=== PATIENT | female | born 1960 | race Caucasian/White ===

== ENCOUNTER 2021-10-19 11:33 | Emergency (ER) | payer MEDICAID, MEDICARE ==
[~2021-10-19] VITALS: Ht 165.1 cm; Wt 70.3 kg
[2021-10-19] MEDS ORDERED: SODIUM CHLORIDE 0.9% 1,000 ML IVB ONE (12:00)
[2021-10-19 13:29] LABS: Basophils # (auto) 0.1 10 ^3/uL (0-0.2); Basophils % (auto) 1.1 % (0.0-2.0); Eosinophils # (auto) 0 10 ^3/uL (0-0.8); Eosinophils % (auto) 0.5 % (0.0-7.0); Hemoglobin 14.7 g/dL (12.2-16.2); Lymphocytes # (auto) 1.8 10 ^3/uL (0.4-5.4); Lymphocytes % (auto) 19.9 % (10.0-50.0); Mean Corpuscular Hemoglobin 31.7 pg (28.0-32.0); Mean Corpuscular Hgb Conc. 34.9 g/dL (32.0-36.0); Mean Corpuscular Volume 90.6 fL (80.0-100.0); Monocytes # (auto) 1.1 10 ^3/uL (0-1.3); Monocytes % (auto) 12.5 % (0.0-12.0); Neutrophils # (auto) 5.9 10 ^3/uL (1.6-8.6); Nucleated Red Blood Cells % 0.2 %; Red Blood Cells 4.63 10^6/uL (4.0-5.20); Red Cell Distribution Width 13.8 % (11.8-14.3)
[2021-10-19 13:36] LABS: Urine Bacteria FEW /hpf (None Seen); Urine Blood Negative /uL (Negative); Urine Mucus FEW (None Seen); Urine Specific Gravity 1.024 (1.001-1.035); Urine WBC 1 /hpf (0 - 5)
[2021-10-19 13:46] LABS: Albumin 3.7 g/dL (3.4-5.0); BUN/Creatinine Ratio 39.7; Calcium 8.5 mg/dL (8.5-10.1); Potassium 4.1 mmol/L (3.5-5.1)
[2021-10-19 13:49] LABS: Bilirubin, Total 0.6 mg/dL (0.2-1.0); Total Protein 8.1 g/dL (6.4-8.2)
[2021-10-19] MEDS ORDERED: ONDA-144 PO (14:12)
[2021-10-19] MEDS ORDERED: DIPH2.5T73 PO (14:12)
[2021-10-19 15:19] VITALS: BP 130/75
== END 2021-10-19 15:30 | disposition home or self-care (01) ==
LOC: ER 11:33
DX: K52.9 Noninfective gastroenteritis and colitis, unspecified (principal); E11.9 Type 2 diabetes mellitus without complications; I10 Essential (primary) hypertension; E03.9 Hypothyroidism, unspecified; F17.210 Nicotine dependence, cigarettes, uncomplicated; Z90.710 Acquired absence of both cervix and uterus; Z79.899 Other long term (current) drug therapy
CPT/HCPCS: 36415; 74176; 80053; 81001; 82150; 83690; 85025; 93005; 96360; 99285; J7030

== ENCOUNTER 2022-03-06 08:15 | Emergency (ER) | payer MEDICAID ==
[~2022-03-06] VITALS: Ht 165.1 cm; Wt 72.9 kg
[~2022-03-06 08:15] MED LIST: DIPH2.5T73 PO; ONDA-144 PO
[2022-03-06] MEDS ORDERED: SODIUM CHLORIDE 0.9% 1,000 ML IVB ONE (09:00)
[2022-03-06 09:20] LABS: Urine Bacteria FEW /hpf (None Seen); Urine Blood Negative /uL (Negative); Urine Specific Gravity 1.011 (1.001-1.035); Urine WBC 1 /hpf (0 - 5)
[2022-03-06 09:23] LABS: Basophils # (auto) 0 10 ^3/uL (0-0.2); Basophils % (auto) 0.1 % (0.0-2.0); Eosinophils # (auto) 0 10 ^3/uL (0-0.8); Eosinophils % (auto) 0.7 % (0.0-7.0); Hematocrit 40.2 % (36.0-46.0); Hemoglobin 13.2 g/dL (12.2-16.2); Lymphocytes # (auto) 1.7 10 ^3/uL (0.4-5.4); Mean Corpuscular Hemoglobin 30.1 pg (28.0-32.0); Mean Corpuscular Hgb Conc. 32.7 g/dL (32.0-36.0); Mean Corpuscular Volume 91.8 fL (80.0-100.0); Monocytes # (auto) 0.8 10 ^3/uL (0-1.3); Monocytes % (auto) 15.5 % (0.0-12.0); Neutrophils # (auto) 2.5 10 ^3/uL (1.6-8.6); Neutrophils % (auto) 49.7 % (37.0-80.0); Nucleated Red Blood Cells % 0.1 %; Red Blood Cells 4.38 10^6/uL (4.0-5.20); Red Cell Distribution Width 14.1 % (11.8-14.3)
[2022-03-06 09:35] LABS: Albumin 3.4 g/dL (3.4-5.0); Calcium 9.4 mg/dL (8.5-10.1); Potassium 4.3 mmol/L (3.5-5.1)
[2022-03-06 09:39] LABS: BUN/Creatinine Ratio 21.8; Bilirubin, Total 0.5 mg/dL (0.2-1.0); Total Protein 8.1 g/dL (6.4-8.2)
[2022-03-06 10:04] LABS: Magnesium 2.1 mg/dL (1.6-2.6)
[2022-03-06 15:54] VITALS: BP 146/86
== END 2022-03-06 18:41 | disposition home or self-care (01) ==
LOC: ER 08:15
DX: E11.65 Type 2 diabetes mellitus with hyperglycemia (principal); M06.9 Rheumatoid arthritis, unspecified; E03.9 Hypothyroidism, unspecified; I10 Essential (primary) hypertension; F17.210 Nicotine dependence, cigarettes, uncomplicated; Z90.710 Acquired absence of both cervix and uterus
CPT/HCPCS: 36415; 71046; 80053; 81001; 82962; 83690; 83735; 84443; 84484; 85025; 93005; 96360; 99285; J7030

== ENCOUNTER 2025-01-21 12:50 | Inpatient (IN) | payer MEDICAID ==
[~2025-01-21] VITALS: Ht 165.1 cm; Wt 72.7 kg
[~2025-01-21 12:50] MED LIST changes: +ALBU0.084 NEB; +FOLI-119 PO; +GABA-339 PO; +GEMF-66 PO; +IPR002IS NEB; +LEVO175T4 PO; +LEVO500T31 PO; +LISI-275 PO; +OMEP-335 PO; +PRED20TA2 PO
--- NOTE | 2025-01-21 13:03 | ECG ---
[facility] Test Date: 2025-01-21 Test Time: 13:01:41 Pat Name: YANCY BURGESS Department: ER Room: Gender: F Senior Outside Sales Representative: GENA : 1960 Requested By: DEYSI GLAEAS Order Number: [id number] Reading MD: Robert Montes De Oca Measurements Intervals [place] Rate: 87 P: 73 [place]: 144 QRS: 14 QRSD: 102 T: 48 QT: 373 QTc: 449 Interpretive Statements Sinus rhythm Abnormal R-wave progression, early transition Electronically Signed On 01-21-2025 21:19:55 PDT by Robert Montes De Oca Please click the below link to view image of tracing.
--- NOTE | 2025-01-21 13:04 | ED.PDOC ---
HPI Comments HPI: 64-year-old female presents to the ED with a chief complaint of dizziness onset today (01/21/25). Patient states she was at home, began experiencing dizziness, near syncopal episode, was assisted to the ground by her son. She is currently experiencing dizziness, generalized weakness. Patient states she took all her medication this morning. Upon ED arrival, blood glucose was checked, it was 144. She is a poor historian, able to answer questions. No other symptoms or modifying factors present at this time. Initial Vitals BP: 83/35 HR: 76 RR: 18 O2 Sat: 99% Temp: 98 F Past Medical history: DM, HTN, thyroid disease, arthritis Past Surgical history: hysterectomy Medications: lisinopril, levothyroxine, Glipizide Social History: cigarettes, marijuana Allergies: NKDA HPI: Poor Historian. No fall or trauma or injury REVIEW OF SYSTEMS: CONSTITUTIONAL: Denies acute: fever, diaphoresis, chills, HEAD: Denies acute: headache, photophobia Eyes: Denies acute: Double vision, vision loss, eye pain, eye discharge. EARS: Denies acute: tinnitus, hearing loss, ear discharge, ear pain, THROAT: Denies acute: sore throat, swelling, difficulty swallowing , pain with swallowing, change in voice. NECK: Denies acute: neck pain, neck swelling, stiff neck. HEART: Denies acute : chest pain, palpitations, LUNGS: Denies acute: SOB, wheezing, cough, hemoptysis ABDOMEN: Denies acute: abdominal pain, Nausea, Vomiting, diarrhea, melena , hematemesis, hematochezia SKIN: Denies acute: rash, redness, lesions, itchiness. EXTREMITIES: Denies acute: calf pain, numbness, tingling, weakness, denies pain in extremity. Denies acute: Low back pain. Neuro: Denies acute: focal neurological deficit, motor or sensory focal neurological deficit, tremors, seizure like activity, confusion, loss of bowel or bladder function, cauda equina like symptoms. : Denies acute: dysuria, hematuria, flank pain, increase in urinary frequency. PSYCH: Denies acute: hallucination, suicidal ideation, homicidal ideation. FEMALE: Denies acute: abnormal vaginal bleeding, foul odor, unusual discharge. PHYSICAL EXAM: General: ---rojp-sw-[id number]----acute distress, awake and alert. Head: normocephalic, atraumatic. Neck: supple, trachea is midline, no swelling. Throat: Normal phonation. Eyes:, no erythema, no purulent discharge, no proptosis, no icterus. Heart: regular rate, regular rhythm, no significant murmur appreciated. Lungs: no apparent respiratory distress, Able to speak in full sentences. No wheezing, no rhonchi, no crackles. No stridors Clear to auscultation bilaterally. Abdomen: non tender to palpation, non distended, soft, no guarding, no rebound, + bowel sounds. Neuro: Awake, Alert, oriented to name, self, situation, follows commands GCS=15. Speech is normal. Skin: no petechia, no purpura, no cyanosis, non-pale, not jaundice. Lower extremities: --no - Pitting edema no deformity, no focal swelling, no calf TTP. Patient wearing a hernandez boot on her left lower extremity. Makes eye contact. moves all four extremities. Face: no apparent facial droop. No nuchal rigidity, Kernig's sign, Brudzinski's sign, no meningeal signs. ED COURSE: DISCLAIMER: This medical document was created using an electronic medical record system with voice recognition software and computerized dictation system. Although this document has been carefully reviewed, there might still be some phonetic and typographical errors. Occasional wrong-word or "sound-alike" substitutions may have occurred due to the inherent limitations of voice recognition software. These areas are purely typographical due to imperfections of the software programs and do not reflect any compromise in the patient's medical care. Please read the chart carefully and recognize, using context, where these substitutions have occurred. Time Seen by MD: 12:55 Primary Care Provider: RICA Reviewed Notes: Medications, Allergies Allergies: Coded Allergies: NO KNOWN ALLERGIES (Unverified , 10/19/21) Home Meds Active Scripts Ondansetron (Zofran) 4 Mg Tab, 1 TAB PO Q6HR, #20 TAB Prov:ALAN FISCHER MD 10/19/21 Diphenoxylate W/ Atropine (Lomotil) 2.5 Mg Tab, 1 TAB PO QID, #20 TAB Prov:ALAN FISCHER MD 10/19/21 Ipratropium [place] (Ipratropium [place]) 0.02 % Janet, 0.5 % NEB Q6HR, #120 ML Prov:NAHEED ESPARZA MD 08/20/19 Albuterol Sulfate (Albuterol Sulfate) 0.083 % Neb, 0.083 % NEB Q6HR, #120 Prov:NAHEED ESPARZA MD 08/20/19 Prednisone (Prednisone) 20 Mg Tab, 1 DOSE PO UD, #21 MG Take 80mg dailyx 2 days then 60mg dailyx 2 days then 40mg dailyx 2 days then 20mg dailyx 2 days then 10mg dailyx 2 days Prov:NAHEED ESPARZA MD 08/20/19 Levofloxacin (Levaquin) 500 Mg Tab, 500 MG PO DAILY, #7 TAB Prov:NAHEED ESPARZA MD 08/20/19 Reported Medications Folic Acid (Folic Acid) 1 Mg Tab, 1 MG PO DAILY for 30 Days, MG 08/20/19 Gemfibrozil (Gemfibrozil) 600 Mg Tab, 300 MG PO BID for 30 Days 08/20/19 Lisinopril (Lisinopril) 5 Mg Tab, 5 MG PO DAILY for 30 Days, MG 08/20/19 Omeprazole (Omeprazole) 20 Mg Tab, 20 MG PO, TAB 04/27/19 Gabapentin (Gabapentin) 600 Mg Tab, 600 MG PO HS for 30 Days, MG 11/08/17 Levothyroxine Sodium (Levothyroxine Sodium) 175 Mcg Tab, 175 MCG PO, TAB 11/08/17 Information Source: Patient, Relative (Child) Mode of Arrival: Wheelchair Severity: Moderate Timing: Hours Duration: Since onset Prehospital treatment: None Onset: At Rest Cardiac Risk Factors: Smoker, HTN, Diabetes PE Risk Factors: None History of: None Modifying Factors: Nothing Past Medical History PAST MEDICAL HISTORY: Arthritis, DM, HTN, Thyroid Surgical History: Hysterectomy C S S REPRESENTATIVE History: No Pertinent C S S REPRESENTATIVE History Family History Family History: Family hx of Cancer Social History Smoker: Cigarettes Alcohol: Denies ETOH Use Drugs: Marijuana Lives In: Home Was a procedure done? Was a procedure done?: No CP Differential Dx Differential Diagnosis: N/A Differential Diagnosis: Other (Includes but not limited to thyroid disease, encephalopathy, electrolyte abnormality, sepsis, infection, intracranial pathology, drug adverse effects, arrhythmia, kidney insufficiency, ACS, CVA, malignancy, anemia) X-Ray, Labs, Meds, VS Vital Signs Date Time Temp Pulse Resp B/P (MAP) Pulse Ox O2 Delivery O2 Flow Rate FiO2 01/21/25 20:00 54 01/21/25 18:00 97.8 80 20 123/78 (93) 98 97.8 01/21/25 17:30 79 01/21/25 16:00 97.8 82 14 129/67 (87) 96 97.8 01/21/25 13:17 85 01/21/25 13:10 97.8 86 18 134/76 (95) 96 97.8 01/21/25 13:10 86 18 96 Room Air* 0 21 01/21/25 13:01 87 01/21/25 12:54 98.0 76 18 83/35 (51) 99 98.0 Lab Test 01/21/25 16:25 01/21/25 14:25 01/21/25 14:05 01/21/25 13:27 Range/Units Troponin I High Sensitivity < 3 L < 3 L < 3 L </=34 ng/L Urine Color Colorless Yellow Urine Clarity Clear Clear Urine pH 7.0 5.0-9.0 Urine Specific [place] 1.006 1.001-1.035 Urine Protein Negative Negative Urine Ketones Negative Negative Urine Blood Negative Negative /uL Urine Nitrite Negative Negative Urine Bilirubin Negative Negative Urine Urobilinogen Normal Negative mg/dL Urine Leukocyte Esterase Negative Negative /uL Urine RBC <1 0 - 4 /hpf Urine Microscopic WBC 2 0-5 /HPF Urine Squamous Epithelial Cells Few <5 /hpf Urine Bacteria Few H None Seen /hpf Urine Mucus Few None Seen Urine Glucose Normal Normal mg/dL White Blood Count 9.7 4.4-10.8 10^3/uL Red Blood Count 4.15 4.0-5.20 10^6/uL Hemoglobin 13.3 12.2-16.2 g/dL Hematocrit 37.7 36.0-46.0 % Mean Corpuscular Volume 90.8 80.0-100.0 fL Mean Corpuscular Hemoglobin 32.1 H 28.0-32.0 pg Mean Corpuscular Hemoglobin Concent 35.3 32.0-36.0 g/dL Red Cell Distribution Width 14.4 H 11.8-14.3 % Platelet Count 113 L 140-450 10^3/uL Mean Platelet Volume 8.4 6.9-10.8 fL Neutrophils (%) (Auto) 40.5 37.0-80.0 % Lymphocytes (%) (Auto) 46.8 10.0-50.0 % Monocytes (%) (Auto) 9.9 0.0-12.0 % Eosinophils (%) (Auto) 2.3 0.0-7.0 % Basophils (%) (Auto) 0.5 0.0-2.0 % Neutrophils # (Auto) 3.9 1.6-8.6 10 ^3/uL Lymphocytes # (Auto) 4.5 0.4-5.4 10 ^3/uL Monocytes # (Auto) 1.0 0-1.3 10 ^3/uL Eosinophils # (Auto) 0.2 0-0.8 10 ^3/uL Basophils # (Auto) 0 0-0.2 10 ^3/uL Nucleated Red Blood Cells 0.0 % Sodium Level 140 136-145 mmol/L Potassium Level 3.1 L 3.5-5.1 mmol/L Chloride Level 110 H 98-107 mmol/L Carbon Dioxide Level 21 20-31 mmol/L Anion Gap 9 5-15 Blood Urea Nitrogen 16 9-23 mg/dL Creatinine 0.89 0.550-1.02 mg/dL Glomerular Filtration Rate Calc 72 >90 mL/min BUN/Creatinine Ratio 18.0 10.0-20.0 Serum Glucose 138 H 74-106 mg/dL Lactic Acid Level 1.8 0.4-2.0 mmol/L Calcium Level 8.8 8.7-10.4 mg/dL Magnesium Level 1.9 1.6-2.6 mg/dL Total Bilirubin 1.0 0.2-1.0 mg/dL Aspartate Amino Transferase (AST) 32 <34 U/L Alanine Aminotransferase (ALT) 29 7-40 U/L Alkaline Phosphatase 143 H 46-116 U/L Total Protein 6.8 5.7-8.2 g/dL Albumin 4.0 3.2-4.8 g/dL Thyroid Stimulating Hormone (TSH) 17.08 H 0.55-4.78 uIU/mL Test 01/21/25 12:55 Range/Units POC Glucose 144 H 70-106 mg/dl Current Medications Medications (Trade) Dose Ordered Sig/Sang Route Start Time Stop Time Status Last Admin Sodium Chloride 1,000 ml @ 1,000 mls/hr Q1H ONCE IV 01/21/25 13:00 01/21/25 13:59 DC 01/21/25 13:31 Sodium Chloride 1,000 ml @ 1,000 mls/hr Q1H ONCE IV 01/21/25 13:00 01/21/25 13:59 DC 01/21/25 13:31 Potassium Chloride (Klor-Con Tablet) 40 meq ONCE ONCE PO 01/21/25 14:45 01/21/25 15:36 DC 01/21/25 15:41 Gabapentin (Neurontin Capsule) 300 mg ONCE ONCE PO 01/21/25 20:30 01/21/25 20:31 DC 01/21/25 20:26 [place] [id number] Ph: [phone] DIAGNOSTIC IMAGING Diagnostic Imaging Report : [id number] Signed PATIENT: CODEY BURGESST: [id number] UNIT: [id number] : 1960 LOC: ER ROOM / BED: / AGE / SEX: 64 / F ADM STATUS: REG ER SERVICE 1256 ORDERING PHYSICIAN: DEYSI GALEAS DO PROCEDURE(s): CXRP - CHEST PORTABLE REASON: near syncope, hypotensive ORDER NUMBER(s): [id number], ACCESSION NUMBER(s): [id number] CHEST RADIOGRAPH Indication: near syncope, hypotensive Technique: Single frontal view of the chest was obtained COMPARISON: None FINDINGS: Lines and Tubes: None Lungs: Clear Pleura: No effusion. No pneumothorax. Cardiomediastinal contours: Unremarkable Bones: Unremarkable IMPRESSION: No acute disease. ATED BY: BHUPENDRA HERNANDEZ MD DICTATED DATE/TIME: 01/21/25 1357 SIGNED BY: BHUPENDRA HERNANDEZ MD SIGNED DATE/TIME: 01/21/25 135 CC: Time of 1ST Reevaluation: 13:25 Reevaluation 1ST: Unchanged Time of 2ND Reevaluation: 21:18 Reevaluation 2ND: Resolved Patient Education/Counseling: Diagnosis, Treatment Family Education/Counseling: Diagnosis, Treatment Comments Patient presented with the above HPI.---near-syncope/hypotension---workup was initiated. patient was found with the above mentioned diagnosis. the following medications were ordered: please refer to order lists of meds and tests obtained by myself Dr. Galeas. Patient ED course and VS have been stabilized. Patient has been reassessed in the ED and remained in a stable condition. Pertinent incidental findings were discussed with the patient and/or family. Patient/family voices understanding and is agreeable with plan. Patient has been observed in the ED adequate length of time to insure improvement/stability. Escalation of care considered: Consideration of escalation to observation or admission Patient was given at least 2 L normal saline bolus. She improved significantly. Patient was ADMITTED to the medicine team for further evaluation and treatment of their presentation. All the reports of any imaging studies that were ordered by myself were reviewed by myself. Departure 1 Departure Time of Disposition: 13:32 Impression: Primary Impression: Syncope Additional Impressions: Hypotension Thyroid disease Hypokalemia Disposition: ADMITTED INPATIENT Admit to: Tele Condition: Guarded Discharged With: Self Critical Care Note Critical Care Time?: No Heart Score Heart Score: Heart Score Response (Comments) Value History Slightly Suspicious 0 EKG Normal 0 Age 45-64 1 Risk Factors 1 or 2 risk factors 1 Troponin Normal limit 0 Total 2 I personally scribed for DEYSI GALEAS DO ([email or web address]) on 01/21/25 at 13:03. Electronically submitted by Taylor Fraser ([email or web address]). I personally scribed for DEYSI GALEAS DO ([email or web address]) on 01/21/25 at 13:18. Electronically submitted by Taylor Fraser ([email or web address]). I personally scribed for DEYSI GALEAS DO ([email or web address]) on 01/21/25 at 14:03. Electronically submitted by Taylor Fraser ([email or web address]). DEYSI GALEAS DO Jan 21, 2025 13:03
[2025-01-21 13:10] VITALS: PULSE 86; RESP 18; O2SAT 96
[2025-01-21] MEDS: SODIUM CHLORIDE 0.9% 1,000 ML IV ONE ×2 (13:31)
[2025-01-21 13:41] LABS: Basophils # (auto) 0 10 ^3/uL (0-0.2); Basophils % (auto) 0.5 % (0.0-2.0); Eosinophils # (auto) 0.2 10 ^3/uL (0-0.8); Eosinophils % (auto) 2.3 % (0.0-7.0); Hematocrit 37.7 % (36.0-46.0); Hemoglobin 13.3 g/dL (12.2-16.2); Lymphocytes # (auto) 4.5 10 ^3/uL (0.4-5.4); Lymphocytes % (auto) 46.8 % (10.0-50.0); Mean Corpuscular Hemoglobin 32.1 pg (28.0-32.0); Mean Corpuscular Hgb Conc. 35.3 g/dL (32.0-36.0); Mean Corpuscular Volume 90.8 fL (80.0-100.0); Monocytes % (auto) 9.9 % (0.0-12.0); Neutrophils # (auto) 3.9 10 ^3/uL (1.6-8.6); Neutrophils % (auto) 40.5 % (37.0-80.0); Platelet Count (auto) 113 10^3/uL (140-450); Red Blood Cells 4.15 10^6/uL (4.0-5.20); Red Cell Distribution Width 14.4 % (11.8-14.3); White Blood Cell 9.7 10^3/uL (4.4-10.8)
[2025-01-21 13:59] LABS: Alanine Aminotransferase 29 U/L (7-40); Anion Gap 9 (5-15); Aspartate Aminotransferase 32 U/L (<34); Blood Urea Nitrogen 16 mg/dL (9-23); Calcium 8.8 mg/dL (8.7-10.4); Carbon Dioxide 21 mmol/L (20-31); Magnesium 1.9 mg/dL (1.6-2.6); Sodium 140 mmol/L (136-145); Total Protein 6.8 g/dL (5.7-8.2)
--- NOTE | 2025-01-21 14:00 | DVH ---
CHEST RADIOGRAPH Indication: near syncope, hypotensive Technique: Single frontal view of the chest was obtained COMPARISON: None FINDINGS: Lines and Tubes: None Lungs: Clear Pleura: No effusion. No pneumothorax. Cardiomediastinal contours: Unremarkable Bones: Unremarkable IMPRESSION: No acute disease.
[2025-01-21 14:01] LABS: Alkaline Phosphatase 143 U/L (46-116); Chloride 110 mmol/L (98-107); Glucose 138 mg/dL (74-106); Potassium 3.1 mmol/L (3.5-5.1)
[2025-01-21 14:35] LABS: Urine Bacteria FEW /hpf (None Seen); Urine Blood Negative /uL (Negative); Urine Clarity Clear (Clear); Urine Color Colorless (Yellow); Urine Mucus FEW (None Seen); Urine Protein, UAD Negative (Negative); Urine Specific Gravity 1.006 (1.001-1.035); Urine Squamous Epithelial Cell FEW /hpf (<5); Urine Urobilinogen Normal (Negative); Urine WBC 2 /HPF (0-5)
[2025-01-21] MEDS: POTASSIUM CHL 20 Meq TABLET PO ONE (15:41)
[2025-01-21] MEDS: GABAPENTIN 300 MG CAP PO ONE (20:26)
--- NOTE | 2025-01-21 21:39 | DVHHPRES ---
History of Present Illness Resident Creating Document: JIM MOSES RESIDENT Reason for Visit: Syncope History of Present Illness 64-year-old female past medical history of COPD, hypertension, diabetes mellitus type 2 hypothyroidism, peripheral neuropathy, GERD, arthritis presented with complaints of syncope. Patient started feeling cold and clammy around 1230 hours with lower back pain followed by dizziness after which she sat on the ground and son noticed and "caught the patient". Further son patient passed out for 20-30 seconds after which she started making some mumbling sounds and patient brought to the ER. On presenting to the ER patient had low blood pressure after which IV fluids were given and patient mentioned improvement in her symptoms. Mentioned that she has been having neck pain for last seven days. Mentioned that she recently had a telephone visit with her primary care physician one month ago but was not taking her prescription medicine for last 5- 6 months before that She denied any chest pain, shortness of breath, cough, nausea, vomiting. Past medical history COPD, hypertension, diabetes mellitus type 2 hypothyroidism, peripheral neuropathy, GERD, rheumatoid arthritis Surgical history ORIF for leg fracture 20 years ago s/p hysterectomy Medication history Methotrexate Gemfibrozil Gabapentin Levothyroxine Lisinopril Omeprazole Prednisone Abatacept Social History Patient smokes cigarettes half pack to one pack for last 53 years occasional marijuana Allergic history No Known Allergies Review of Systems Review of Systems As mentioned in the HPI Allergies: Coded Allergies: NO KNOWN ALLERGIES (Unverified , 10/19/21) Exam Vital Signs Vital Signs Date Time Temp Pulse Resp B/P (MAP) Pulse Ox O2 Delivery O2 Flow Rate FiO2 01/21/25 20:00 54 01/21/25 18:00 97.8 20 123/78 (93) 98 97.8 01/21/25 13:10 Room Air* 0 21 Exam Examination General Appearance: Alert, Oriented X3, Cooperative, No acute distress HEENT: EOMI Respiratory: Clear to auscultation, Normal air movement Cardiovascular: Regular rate, Normal S1, Normal S2 Abdominal: Normal bowel sounds Extremities: No cyanosis, No edema, Normal pulses, No tenderness/swelling Skin: No rashes, No breakdown Neuro: Normal gait, Normal speech, Strength at 5/5 X4 ext, Normal tone, Sensation intact, Cranial nerves 3-12 NL, Reflexes 2+ Psych/Mental Status: Mental status NL, Mood NL POCUS done at bedside -Collapsed IVC Labs/Xrays Labs Test 01/21/25 16:25 01/21/25 14:05 01/21/25 13:27 01/21/25 12:55 Range/Units Troponin I High Sensitivity < 3 L </=34 ng/L Urine Color Colorless Yellow Urine Clarity Clear Clear Urine pH 7.0 5.0-9.0 Urine Specific [place] 1.006 1.001-1.035 Urine Protein Negative Negative Urine Ketones Negative Negative Urine Blood Negative Negative /uL Urine Nitrite Negative Negative Urine Bilirubin Negative Negative Urine Urobilinogen Normal Negative mg/dL Urine Leukocyte Esterase Negative Negative /uL Urine RBC <1 0 - 4 /hpf Urine Microscopic WBC 2 0-5 /HPF Urine Squamous Epithelial Cells Few <5 /hpf Urine Bacteria Few H None Seen /hpf Urine Mucus Few None Seen Urine Glucose Normal Normal mg/dL White Blood Count 9.7 4.4-10.8 10^3/uL Red Blood Count 4.15 4.0-5.20 10^6/uL Hemoglobin 13.3 12.2-16.2 g/dL Hematocrit 37.7 36.0-46.0 % Mean Corpuscular Volume 90.8 80.0-100.0 fL Mean Corpuscular Hemoglobin 32.1 H 28.0-32.0 pg Mean Corpuscular Hemoglobin Concent 35.3 32.0-36.0 g/dL Red Cell Distribution Width 14.4 H 11.8-14.3 % Platelet Count 113 L 140-450 10^3/uL Mean Platelet Volume 8.4 6.9-10.8 fL Neutrophils (%) (Auto) 40.5 37.0-80.0 % Lymphocytes (%) (Auto) 46.8 10.0-50.0 % Monocytes (%) (Auto) 9.9 0.0-12.0 % Eosinophils (%) (Auto) 2.3 0.0-7.0 % Basophils (%) (Auto) 0.5 0.0-2.0 % Neutrophils # (Auto) 3.9 1.6-8.6 10 ^3/uL Lymphocytes # (Auto) 4.5 0.4-5.4 10 ^3/uL Monocytes # (Auto) 1.0 0-1.3 10 ^3/uL Eosinophils # (Auto) 0.2 0-0.8 10 ^3/uL Basophils # (Auto) 0 0-0.2 10 ^3/uL Nucleated Red Blood Cells 0.0 % Sodium Level 140 136-145 mmol/L Potassium Level 3.1 L 3.5-5.1 mmol/L Chloride Level 110 H 98-107 mmol/L Carbon Dioxide Level 21 20-31 mmol/L Anion Gap 9 5-15 Blood Urea Nitrogen 16 9-23 mg/dL Creatinine 0.89 0.550-1.02 mg/dL Glomerular Filtration Rate Calc 72 >90 mL/min BUN/Creatinine Ratio 18.0 10.0-20.0 Serum Glucose 138 H 74-106 mg/dL Lactic Acid Level 1.8 0.4-2.0 mmol/L Calcium Level 8.8 8.7-10.4 mg/dL Magnesium Level 1.9 1.6-2.6 mg/dL Total Bilirubin 1.0 0.2-1.0 mg/dL Aspartate Amino Transferase (AST) 32 <34 U/L Alanine Aminotransferase (ALT) 29 7-40 U/L Alkaline Phosphatase 143 H 46-116 U/L Total Protein 6.8 5.7-8.2 g/dL Albumin 4.0 3.2-4.8 g/dL Thyroid Stimulating Hormone (TSH) 17.08 H 0.55-4.78 uIU/mL POC Glucose 144 H 70-106 mg/dl Assessment/Plan Assessment/Plan Assessment/plan #syncope likely due to hypotension -Orthostasis vitals -EKG monitoring -NCCT head -echo #Hypotension -currently resolved -IV fluids #hypokalemia corrected #COPD -stable #DM2 -Mild sliding scale insulin -Monitor blood glucose #Hypothyroidism -TSH Free T3/T4, awaiting #GERD resume home meds #Rheumatoid arthritis resume home Meds #Thrombocytopenia monitor #Tobacco use disorder Nicotine patch counselling for cessation Case discussion with Dr Mar Plan discussed with: Patient, Other My Orders Orders - JIM MOSES RESIDENT Procedure Category Date Status Time Admit ADMIT 01/21/25 Transmitted 21:21 Oxygen By Nasal RT 01/21/25 Transmitted Cannula 21:21 Stat Ekg For Chest YADY 01/21/25 In Process Pain 21:21 Notify Of Changes YADY 01/21/25 In Process From Base 21:21 Reel Tender For YADY 01/21/25 In Process 24 Hours 21:21 Emergency Dysrhythmia YADY 01/21/25 In Process Protocol 21:21 Rhythm Strips Once [facility] 01/21/25 In Process Every Shift 21:21 Date of Service: Jan 21, 2025 Billing Provider: AMARILYS MAR MD Common Visit Codes: 34900-[id number] INP/OBS CARE (HIGH) Secondary Visit Codes: [id number] CARE PLAN 30 MINUTES JIM MOSES RESIDENT Jan 21, 2025 21:39
[2025-01-21] MEDS ORDERED: DEXTROSE (50%) 50ML SYRG IV PRN (21:45)
[2025-01-21 22:12] LABS: Free T3 1.73 pg/mL (2.3-4.2); Free T4 (Free Thyroxine) 0.96 ng/dL (0.89-1.76)
[2025-01-21] MEDS: NICOTINE 21MG/24 HR TOPICAL PATCH TD ONE (22:19)
--- NOTE | 2025-01-21 23:18 | DVH ---
COMPUTERIZED TOMOGRAPHY OF THE HEAD WITHOUT CONTRAST REASON FOR STUDY: syncope COMPARISON: None TECHNIQUE: Helical tomographic scans were obtained through the brain. 2-D coronal and sagittal refor matted images are provided. Automated exposure control was used. RADIATION DOSE: CTDI: 53 mGy DLP: 1054 mGy-cm FINDINGS: No suspicious intracranial hyperdensity to suggest acute blood. There is mild diffuse cere bral atrophy. There is no mass effect nor midline shift. There is no hydrocephalus. The suprasellar cistern is intact. The calvarium is intact. There is frothy material in the left maxillary sinus. Th e mastoid air cells are clear. IMPRESSION: No acute intracranial abnormality. Frothy material in the left maxillary sinus. Correlate clinically for acute sinusitis.
[2025-01-22] VITALS (9 sets, daily range): BP systolic 75–130; BP diastolic 37–80; PULSE 78–96; RESP 18–90; TEMP 97.6–98.4; O2SAT 95–97
[2025-01-22] MEDS: ACCU-CHEK COMFORT CURVE STRIP VI SCH (00:30)
[2025-01-22] MEDS: InsuLIN REG 1unit/0.01ml Soln (100units/ml) SC SCH (00:34)
[2025-01-22 06:48] LABS: Potassium 4.2 mmol/L (3.5-5.1); Sodium 138 mmol/L (136-145)
[2025-01-22 06:49] LABS: Anion Gap 8 (5-15); Calcium 9.4 mg/dL (8.7-10.4); Carbon Dioxide 20 mmol/L (20-31)
[2025-01-22 06:54] LABS: BUN/Creatinine Ratio 21.1 (10.0-20.0); Blood Urea Nitrogen 15 mg/dL (9-23)
[2025-01-22 06:55] LABS: Magnesium 1.9 mg/dL (1.6-2.6)
[2025-01-22 06:58] LABS: Chloride 110 mmol/L (98-107); Glucose 182 mg/dL (74-106)
[2025-01-22 07:10] LABS: Basophils # (auto) 0 10 ^3/uL (0-0.2); Basophils % (auto) 0.4 % (0.0-2.0); Eosinophils # (auto) 0.1 10 ^3/uL (0-0.8); Eosinophils % (auto) 1.8 % (0.0-7.0); Hematocrit 39.2 % (36.0-46.0); Hemoglobin 13.6 g/dL (12.2-16.2); Lymphocytes # (auto) 3.7 10 ^3/uL (0.4-5.4); Lymphocytes % (auto) 48.1 % (10.0-50.0); Mean Corpuscular Hemoglobin 31.8 pg (28.0-32.0); Mean Corpuscular Hgb Conc. 34.7 g/dL (32.0-36.0); Mean Corpuscular Volume 91.7 fL (80.0-100.0); Monocytes # (auto) 0.8 10 ^3/uL (0-1.3); Monocytes % (auto) 10.1 % (0.0-12.0); Neutrophils # (auto) 3.1 10 ^3/uL (1.6-8.6); Neutrophils % (auto) 39.6 % (37.0-80.0); Nucleated Red Blood Cells % 0.2 %; Platelet Count (auto) 98 10^3/uL (140-450); Red Blood Cells 4.28 10^6/uL (4.0-5.20); Red Cell Distribution Width 14.5 % (11.8-14.3); White Blood Cell 7.7 10^3/uL (4.4-10.8)
[2025-01-22] MEDS: SODIUM CHLORIDE 0.9% 250 ML IV ONE (07:30)
[2025-01-22] MEDS: ENOXAPARIN SOD 40 MG/0.4 ML SYRINGE SC SCH (09:11)
[2025-01-22] MEDS: NICOTINE 21MG/24 HR TOPICAL PATCH TD SCH (10:00)
[2025-01-22] MEDS ORDERED: ATOR20TA50 (17:22)
[2025-01-22] MEDS ORDERED: LEVO125T7 PO (17:22)
--- NOTE | 2025-01-22 17:30 | DVHPN2 ---
Subjective Patient denies any symptoms this time Reviewed: Care Plan, H&P, Labs Changes from previous H/P or p: No Changes General: Per HPI Objective Vitals Vital Signs Date Time Temp Pulse Resp B/P (MAP) Pulse Ox O2 Delivery O2 Flow Rate FiO2 01/22/25 17:19 97.6 85 18 115/55 (75) 96 97.6 01/22/25 13:20 Room Air* 0 21 Intake/Output Intake and Output 01/22/25 07:00 Intake Total 2000 ml Balance 2000 ml IV Total 2000 ml General Appearance: Alert, Oriented X3, Cooperative HEENT: PERRLA Lungs: Clear to auscultation, Normal air movement Cardiovascular: Normal S1, Normal S2 Abdomen: Normal bowel sounds, Soft, No tenderness Musculoskeletal: Normal sensory function, Normal motor function Skin: Dry, Intact Psych/Mental Status: Mental status NL, Mood NL Medications Current Medications Medications Dose Ordered Sig/Sang Route Start Time Stop Time Status Last Admin Dose Admin Diagnostic Test (Pha) 1 strip Q6HR 01/22/25 00:00 01/22/25 12:00 1 STRIP Insulin Human Regular Q6HR SC 01/22/25 00:00 01/22/25 12:00 3 UNITS Dextrose 50 ml UD PRN IV 01/21/25 21:45 Nicotine 1 patch DAILY TD 01/22/25 10:00 01/22/25 10:00 1 PATCH Enoxaparin Sodium 40 mg DAILY SC 01/22/25 10:00 Laboratory Results Laboratory Tests 01/22/25 06:01 Chemistry Test 01/22/25 06:01 Calcium Level 9.4 mg/dL (8.7-10.4) Magnesium Level 1.9 mg/dL (1.6-2.6) Urinalysis Test 01/21/25 14:05 Urine Color Colorless (Yellow) Urine Clarity Clear (Clear) Urine pH 7.0 (5.0-9.0) Urine Specific [place] 1.006 (1.001-1.035) Urine Protein Negative (Negative) Urine Ketones Negative (Negative) Urine Blood Negative /uL (Negative) Urine Nitrite Negative (Negative) Urine Bilirubin Negative (Negative) Urine Urobilinogen Normal mg/dL (Negative) Urine Leukocyte Esterase Negative /uL (Negative) Urine RBC <1 /hpf (0 - 4) Urine Microscopic WBC 2 /HPF (0-5) Urine Squamous Epithelial Cells Few /hpf (<5) Urine Bacteria Few /hpf (None Seen) H Urine Mucus Few (None Seen) Urine Glucose Normal mg/dL (Normal) Labs and/or images reviewed: Labs reviewed by me, Image(s) reviewed by me Assessment/Plan Assessment/Plan Impression: -syncope -hypovolemic hypotension -diabetes mellitus -hypothyroidism -dyslipidemia -nicotine dependence Plan: -orthostatic blood pressure -echocardiogram pending -CT scan of the head, carotid Doppler study unremarkable -regular insulin sliding scale -IV hydration -reassess for discharge in a.m. Total time spent with patient discussing and formulating plan of care: 35 minutes. This medical document was created using an electronic medical record system with [employer] dictation system. Although this document has been carefully reviewed, there may still be some phonetic and typographical errors. These areas are purely typographical due to imperfections of the software programs, and do not reflect any compromise in the patient's medical care. Plan discussed with: Patient, Other (RN) My Orders Orders - CORI FERNANDES NP Procedure Category Date Status Time Orthostatic Vital ORDERS 01/22/25 Transmitted Signs 17:20 Atorvastatin (Lipitor) PHA 01/22/25 Logged 22:00 (Nf) Levothyroxine PHA 01/23/25 Logged Sodium 10:00 Sodium Chloride 0.9% PHA 01/22/25 Logged 17:30 Date of Service: Jan 22, 2025 Billing Provider: CORI FERNANDES NP Common Visit Codes: 89050-[id number] INP/OBS CARE(HIGH) CORI FERNANDES NP Jan 22, 2025 17:30
[2025-01-22] MEDS: SODIUM CHLORIDE 0.9% 1,000 ML IV SCH (17:54)
--- NOTE | 2025-01-22 18:37 | DVHSR ---
APPROVED REPORT EXAM: Two-dimensional and M-mode echocardiogram with Doppler and color Doppler. Blood Pressure: 137/73 mmHg INDICATION Syncope RISK FACTORS Height: 5'5, Weight: 160 DIMENSIONS LVDd3.4 (3.8-5.7cm)LA (2D)3.4 (1.9-4.0cm)Aortic Root3.4 (2.0-3.7cm) LVDs2.4 (2.5-4.0cm)LA (MM) (1.9-4.0cm)Aortic Cusp Exc1.7 (1.5-2.0cm) EF (%) 55.0 (55-70%)Rt. Atrium2.9 (1.9-4.0cm)Asc. Aorta3.2 cm IVSd1.1 (0.7-1.1cm)RV (D)2.5 (1.8-2.4cm) PWd0.9 (0.7-1.1cm) Mitral Valve MitralMitral Stenosis E wave0.78m/sMV Mean GR.mmHg A wave1.01m/sMV Peak GR.89mmHg E/A ratio0.82D MVAcm2 DECEL [id number] 1/2 [place] Aortic Valve Aortic ValveAortic Stenosis V11.39m/Denise Mean GR.6mmHg V21.60m/Denise Peak GR.10mmHg LVOT Diameter2.0 (1.8-2.4cm)Doppler AVA2.73cm2 Pulmonic Valve V21.10m/s Tricuspid Valve TR Velocity2.55m/s [id number] Other Information Technically limited study due to body habitus. Conclusion NORMAL LV EJECTION FRACTION IS 65% NORMAL RV FUNCTION NORMAL VALVES NO EFFUSION
[2025-01-22] MEDS: ATORVASTATIN 20 MG TAB PO SCH (21:17)
[2025-01-23 01:00] VITALS: BP 123/72; PULSE 77; RESP 17; TEMP 97.6; O2SAT 96
[2025-01-23 05:00] VITALS: BP 126/71; PULSE 80; RESP 17; TEMP 98.1; O2SAT 96
[2025-01-23] MEDS: LEVOTHYROXINE SODIUM 25 MCG TAB PO SCH (06:30)
[2025-01-23] MEDS: LEVOTHYROXINE SODIUM 100 MCG TAB PO SCH (06:30)
[2025-01-23 08:00] VITALS: PULSE 77
[2025-01-23 09:00] VITALS: BP 135/81; PULSE 82; RESP 20; TEMP 97.4; O2SAT 97
[2025-01-23] MEDS: LISINOPRIL 5 MG TAB PO ONE (13:29)
--- NOTE | 2025-01-23 13:41 | DVHDS2 ---
Discharge Summary Date of Admission Jan 21, 2025 at 21:21 Date of Discharge: Jan 23, 2025 Admitting Diagnosis Syncope due to hypotension Labs/Diagnostic Data: Laboratory Results Test 01/23/25 11:23 01/22/25 06:01 01/21/25 16:25 01/21/25 14:05 POC Glucose 195 mg/dl (70-106) White Blood Count 7.7 10^3/uL (4.4-10.8) Red Blood Count 4.28 10^6/uL (4.0-5.20) Hemoglobin 13.6 g/dL (12.2-16.2) Hematocrit 39.2 % (36.0-46.0) Mean Corpuscular Volume 91.7 fL (80.0-100.0) Mean Corpuscular Hemoglobin 31.8 pg (28.0-32.0) Mean Corpuscular Hemoglobin Concent 34.7 g/dL (32.0-36.0) Red Cell Distribution Width 14.5 % (11.8-14.3) Platelet Count 98 10^3/uL (140-450) Mean Platelet Volume 8.9 fL (6.9-10.8) Neutrophils (%) (Auto) 39.6 % (37.0-80.0) Lymphocytes (%) (Auto) 48.1 % (10.0-50.0) Monocytes (%) (Auto) 10.1 % (0.0-12.0) Eosinophils (%) (Auto) 1.8 % (0.0-7.0) Basophils (%) (Auto) 0.4 % (0.0-2.0) Neutrophils # (Auto) 3.1 10 ^3/uL (1.6-8.6) Lymphocytes # (Auto) 3.7 10 ^3/uL (0.4-5.4) Monocytes # (Auto) 0.8 10 ^3/uL (0-1.3) Eosinophils # (Auto) 0.1 10 ^3/uL (0-0.8) Basophils # (Auto) 0 10 ^3/uL (0-0.2) Nucleated Red Blood Cells 0.2 % Sodium Level 138 mmol/L (136-145) Potassium Level 4.2 mmol/L (3.5-5.1) Chloride Level 110 mmol/L (98-107) Carbon Dioxide Level 20 mmol/L (20-31) Anion Gap 8 (5-15) Blood Urea Nitrogen 15 mg/dL (9-23) Creatinine 0.71 mg/dL (0.550-1.02) Glomerular Filtration Rate Calc 95 mL/min (>90) BUN/Creatinine Ratio 21.1 (10.0-20.0) Serum Glucose 182 mg/dL (74-106) Calcium Level 9.4 mg/dL (8.7-10.4) Magnesium Level 1.9 mg/dL (1.6-2.6) Troponin I High Sensitivity < 3 ng/L (</=34) Urine Color Colorless (Yellow) Urine Clarity Clear (Clear) Urine pH 7.0 (5.0-9.0) Urine Specific [place] 1.006 (1.001-1.035) Urine Protein Negative (Negative) Urine Ketones Negative (Negative) Urine Blood Negative /uL (Negative) Urine Nitrite Negative (Negative) Urine Bilirubin Negative (Negative) Urine Urobilinogen Normal mg/dL (Negative) Urine Leukocyte Esterase Negative /uL (Negative) Urine RBC <1 /hpf (0 - 4) Urine Microscopic WBC 2 /HPF (0-5) Urine Squamous Epithelial Cells Few /hpf (<5) Urine Bacteria Few /hpf (None Seen) Urine Mucus Few (None Seen) Urine Glucose Normal mg/dL (Normal) Test 01/21/25 13:27 Hemoglobin A1c 8.7 % A1C (<5.7) Lactic Acid Level 1.8 mmol/L (0.4-2.0) Total Bilirubin 1.0 mg/dL (0.2-1.0) Aspartate Amino Transferase (AST) 32 U/L (<34) Alanine Aminotransferase (ALT) 29 U/L (7-40) Alkaline Phosphatase 143 U/L (46-116) Total Protein 6.8 g/dL (5.7-8.2) Albumin 4.0 g/dL (3.2-4.8) Thyroid Stimulating Hormone (TSH) 17.08 uIU/mL (0.55-4.78) Free Thyroxine (T4) Calculated 0.96 ng/dL (0.89-1.76) Free Triiodothyronine (T3) pg/mL 1.73 pg/mL (2.3-4.2) Other Laboratory Tests 01/22/25 06:01 Brief Hx & Hospital Course: History of Present Illness 64-year-old female past medical history of COPD, hypertension, diabetes mellitus type 2 hypothyroidism, peripheral neuropathy, GERD, arthritis presented with complaints of syncope. Patient started feeling cold and clammy around 1230 hours with lower back pain followed by dizziness after which she sat on the ground and son noticed and "caught the patient". Further son patient passed out for 20-30 seconds after which she started making some mumbling sounds and patient brought to the ER. On presenting to the ER patient had low blood pressure after which IV fluids were given and patient mentioned improvement in her symptoms. Mentioned that she has been having neck pain for last seven days. Mentioned that she recently had a telephone visit with her primary care physician one month ago but was not taking her prescription medicine for last 5- 6 months before that She denied any chest pain, shortness of breath, cough, nausea, vomiting. Course of hospitalization: Patient was given 2 L normal saline upon arrival to the emergency room. Patient was assessed on the Medical/Surgical floor, noted to have positive orthostatic hypotension. IV hydration was continued. Patient now borderline hypertensive today without any symptoms. CT scan of the head carotid Doppler study as well as echocardiogram are all unremarkable. Patient was agreeable to be discharged home. Education was given to the patient regarding monitoring her blood pressure for which she states that she will purchase a blood pressure machine and monitor daily prior to her medications. Patient's lisinopril dose will be decreased from 10 mg to 5 mg p.o. daily with the patient informed to not take this medication if her systolic blood pressures less than 110 mmHg. She will follow up with the discharge Clinic in one week. All questions answered. Physical examination General: Alert and Oriented x3. No acute distress. Well-nourished. Eyes: EOMI. Anicteric. HENT: Moist mucous membranes. Lungs: Clear to auscultation bilaterally. No accessory muscle use. Cardiovascular: Regular rate and rhythm. No murmur. No JVD. Abdomen: Soft, non-tender and non-distended. No palpable masses. Extremities: No edema. Non-tender. Skin: No rashes or lesions. Warm. Neurologic: No focal neurological deficits. CN II-XII grossly intact, but not individually tested. Psychiatric: Cooperative. Appropriate mood and affect. Total time spent with patient discussing and formulating plan of care: 35 minutes. This medical document was created using an electronic medical record system with [email or web address] dictation system. Although this document has been carefully reviewed, there may still be some phonetic and typographical errors. These areas are purely typographical due to imperfections of the software programs, and do not reflect any compromise in the patient's medical care. Condition at Discharge: Fair Final Diagnosis/Problems List Syncope secondary to dehydration hypovolemic hypotension -diabetes mellitus -hypothyroidism -dyslipidemia -nicotine dependence Discharge Disposition: Home Discharge Instruct/Medications Diet: Consistent carbohydrate, Cardiac 2g Na,low cholest Activity: No Restrictions, As Tolerated Follow Up/Referral: Follow up with discharge Clinic in one week Medications: Continue all home medications Decrease lisinopril to 5 mg p.o. daily. Patient will take blood pressure daily prior to medication, and hold if systolic blood pressures less than 110 mmHg 36 Discharge Statement: "Patient was advised to return to the ER or call 911 if any headaches, dizziness, shortness of breath, chest pain, abdominal pain, bleeding, fevers, or worsening of medical condition. Patient was counseled about treatment plan, medications, possible side effects, patientverbalized understanding. All questions were answered to the best of my ability. This discharge took greater then 30 minutes in planning, reviewing documentation, counseling the patient, and discussing with other team members." ASSESSMENT ASSESSMENT Assessment Syncope secondary to dehydration Date of Service: Jan 23, 2025 Billing Provider: CORI FERNANDES NP Common Visit Codes: [id number] INP/OBS CARE(HIGH) CORI FERNANDES NP Jan 23, 2025 13:41
[2025-01-23 15:27] VITALS: BP 154/97; TEMP 36.3
[2025-01-24 10:49] LABS: Folate (Folic Acid) 7.23 ng/mL (>5.38)
== END 2025-01-23 16:00 | disposition home or self-care (01) | DRG 422 ==
LOC: ER 12:50 → OVERFLOW 21:21 → TELE-EAST 01-22 15:15
PROVIDERS: ADMIT Student in an Organized Health Care Education/Training Program; ATTEND Emergency Medicine
DX: E86.0 Dehydration (principal); E86.1 Hypovolemia; D69.6 Thrombocytopenia, unspecified; E11.42 Type 2 diabetes mellitus with diabetic polyneuropathy; I95.1 Orthostatic hypotension; K21.9 Gastro-esophageal reflux disease without esophagitis; E03.9 Hypothyroidism, unspecified; J44.9 Chronic obstructive pulmonary disease, unspecified; M06.9 Rheumatoid arthritis, unspecified; E78.5 Hyperlipidemia, unspecified; E87.6 Hypokalemia; F17.210 Nicotine dependence, cigarettes, uncomplicated; I10 Essential (primary) hypertension; Z90.710 Acquired absence of both cervix and uterus
CPT/HCPCS: 36415; 70450; 71045; 80048; 80053; 81001; 82607; 82746; 82962; 83036; 83605; 83735; 84439; 84443; 84481; 84484; 85025; 93005; 93306; 96360; G0378; J1815